=== PATIENT | female | born 1975 | race Caucasian/White ===

== ENCOUNTER 2018-02-12 18:19 | Emergency (ER) | payer OTHER, MEDICARE ==
[~2018-02-12] VITALS: Ht 167.6 cm; Wt 54.4 kg
[~2018-02-12 18:19] MED LIST: FAMO20TA98 PO; HYDR-1189 PO; LEVO500T20 PO; LORA1TAB PO; MIRT45TA PO; PRO40 PO; RIFA300C2 PO; TRAZ300T11 PO
[2018-02-12 18:27] VITALS: BP_SYST 128
[2018-02-12] MEDS ORDERED: ACETAMINOPHEN 325 MG TABLET PO ONE (18:45)
[2018-02-12] MEDS ORDERED: IBUPROFEN 600 MG TABLET PO ONE (18:45)
[2018-02-12 19:55] VITALS: BP_SYST 128
== END 2018-02-12 19:56 | disposition home or self-care (01) ==
LOC: SED 18:19
DX: M25.511 Pain in right shoulder (principal); M79.644 Pain in right finger(s); F41.9 Anxiety disorder, unspecified; K21.9 Gastro-esophageal reflux disease without esophagitis; Z88.5 Allergy status to narcotic agent; Z91.041 Radiographic dye allergy status; Z79.899 Other long term (current) drug therapy
CPT/HCPCS: 73030; 99284

== ENCOUNTER 2024-04-29 14:01 | Emergency (ER) | payer BC ==
[~2024-04-29] VITALS: Ht 167.6 cm; Wt 55.3 kg
[~2024-04-29 14:01] MED LIST changes: +FAMO-132 PO; -FAMO20TA98 PO; -HYDR-1189 PO; +HYDR-3919 PO
[2024-04-29 14:05] VITALS: BP_SYST 128; PULSE 65; RESP 19; TEMP 98; O2SAT 99
[2024-04-29] MEDS ORDERED: DICL20GE TP (15:49)
[2024-04-29] MEDS ORDERED: LIDO1ADH22 TP (15:49)
[2024-04-29] MEDS: LIDOCAINE PATCH 5% 1 EA TP ONE (16:13)
[2024-04-29 16:18] VITALS: BP_SYST 128; PULSE 65; RESP 19; TEMP 98; O2SAT 99
== END 2024-04-29 16:17 | disposition home or self-care (01) ==
LOC: SED 14:01
DX: S39.012A Strain of muscle, fascia and tendon of lower back, initial encounter (principal); K21.9 Gastro-esophageal reflux disease without esophagitis; Z88.5 Allergy status to narcotic agent; Z88.8 Allergy status to other drugs, medicaments and biological substances; Z85.830 Personal history of malignant neoplasm of bone; Z79.899 Other long term (current) drug therapy; Z79.2 Long term (current) use of antibiotics; Z98.890 Other specified postprocedural states; X58.XXXA Exposure to other specified factors, initial encounter; Y93.89 Activity, other specified; Y92.89 Other specified places as the place of occurrence of the external cause; Y99.8 Other external cause status
CPT/HCPCS: 72100; 99283

== ENCOUNTER 2024-05-17 17:35 | Emergency (ER) | payer BC ==
[~2024-05-17] VITALS: Ht 167.6 cm; Wt 54.4 kg
[~2024-05-17 17:35] MED LIST changes: +DICL20GE TP; +LIDO1ADH22 TP
[2024-05-17 17:38] VITALS: BP_SYST 133; PULSE 86; RESP 18; TEMP 98.1; O2SAT 97
[2024-05-17 17:40] VITALS: BP_SYST 133; PULSE 86; RESP 18; TEMP 98.1; O2SAT 97
== END 2024-05-17 18:25 | disposition left against medical advice (07) ==
LOC: SED 17:35
DX: F41.9 Anxiety disorder, unspecified (principal); R00.0 Tachycardia, unspecified; Z53.21 Procedure and treatment not carried out due to patient leaving prior to being seen by health care provider; J45.909 Unspecified asthma, uncomplicated
CPT/HCPCS: 82948; 93005